=== PATIENT | male | born 1945 | race Caucasian/White ===

== ENCOUNTER 2019-02-20 12:03 | Emergency (ER) | payer OTHER, SELFPAY ==
[2019-02-20 12:14] VITALS: BP 139/73; PULSE 79; RESP 18; TEMP 36.5; O2SAT 99; BMI 28.3
--- NOTE | 2019-02-20 12:21 | DI.RAD.S_ITS ---
PROCEDURE: XR CHEST 1V INDICATIONS: chest pain TECHNIQUE: One view of the chest was acquired. COMPARISON: [facility], , CHEST 2 VIEW, 08/22/2014, 11:54. FINDINGS: Surgical changes and devices: None. Lungs and pleura: Lungs are clear. No pleural effusions or pneumothorax. Mediastinum: Mediastinal contours appear normal. Heart size is normal. Moderate hiatal hernia. Bones and chest wall: No suspicious bony lesions. Overlying soft tissues appear unremarkable. IMPRESSION: Moderate hiatal hernia. No evidence acute pulmonary process. Dictated by: Lionel Carrizaels M.D. on 02/20/2019 at 12:54 Approved by: Lionel Carrizales M.D. on 02/20/2019 at 12:55
[2019-02-20 12:30] VITALS: BP 125/65; PULSE 75; RESP 17; O2SAT 99
--- NOTE | 2019-02-20 12:36 | ED.DIZZY ---
HPI - Dizziness <ANJELICA Busch - Last Filed: 02/20/19 14:22> General Chief Complaint: Dizziness Stated Complaint: New Meds started, light headed Time Seen by Provider: 02/20/19 12:13 Source: patient and family (spouse) Mode of arrival: ambulatory Limitations: no limitations History of Present Illness HPI Narrative: started fluconazole on 02/17 within minutes of taking then new med he got dizzy, he was sitting in recliner and when he got up he was very dizzy, and immediately sat back down, dizziness is better when remaining still and worse with movement, there was also episode of some chest heaviness, but none now, the side effects say on bottle dizziness, so he thinks it is the new med, and now he is afraid to take it, rx that for yeast infection of the groin that was getting worse with otc topical meds MD complaint: dizziness Onset (ago): hour(s) (3) Timing: sudden onset Description: sense of movement, off-balance and difficulty walking History of similar episodes: No History of trauma: No Severity: severe Relieving factors: remaining still Exacerbating factors: movement Associated symptoms: chest pain (chest heaviness, no pain) Related Data Allergies Allergy/AdvReac Type Severity Reaction Status Date / Time Penicillins Allergy Verified 02/20/19 12:18 Review of Systems <ANJELICA Busch - Last Filed: 02/20/19 14:22> Review of Systems ROS Unobtainable: All systems reviewed & are unremarkable except as noted in HPI and below Constitutional Reports as per HPI and Denies fever(s) ENT Ears, Nose, Mouth, and Throat: Denies neck pain Cardiovascular Denies chest pain, Denies chest pain at rest, Denies chest pain with activity, Denies diaphoresis, Denies syncope, Denies rapid heart rate, Denies edema, Denies irregular heart rhythm, Denies lightheadedness, Denies palpitations and Denies dyspnea Respiratory Denies dyspnea Gastrointestinal Gastrointestinal: Denies diarrhea and Denies vomiting Musculoskeletal Denies back pain, Denies limited range of motion, Denies muscle weakness, Denies neck pain and Denies numbness Neurologic Denies syncope and Denies numbness Endocrine Denies palpitations PFSH <ANJELICA Busch - Last Filed: 02/20/19 14:22> Social History Smoking Status: Never smoker Social History Smoking Status: Never smoker Exam <ANJELICA Busch - Last Filed: 02/20/19 14:22> Initial Vital Signs Initial Vital Signs: Vital Signs Temperature 97.7 F 02/20/19 12:14 Pulse Rate 79 02/20/19 12:14 Respiratory Rate 18 02/20/19 12:14 Blood Pressure 139/73 02/20/19 12:14 Pulse Oximetry 99 02/20/19 12:14 Const General: cooperative, healthy appearing, comfortable, well developed and well groomed Nutritional Appearance: average body habitus Orientation: alert, awake and oriented x3 HENMT Head: normal to inspection and normocephalic Ears: hearing grossly normal bilaterally, external ears normal, TM's normal bilaterally, mastoids normal and other (B hearing aids) Nose: external nose normal and nares normal Face and sinus: normal facial exam, sinuses nontender and face symmetric Mouth: oral mucosae normal, lip normal, tongue normal, oropharynx normal and moist mucous membranes Teeth and gingiva: dentition normal and gingiva normal Throat: posterior oropharynx normal, tonsils normal and uvula midline Eyes General: appearance normal, both eyes and all related structures Visual Vo: normal visual vo by confrontation Eyelids: eyelids normal Conjunctivae: conjunctivae normal Sclera: sclerae normal Pupils: PERRL EOM: EOM intact bilaterally Neck Neck: normal visual inspection, full ROM, no meningeal signs, trachea midline, supple and No lymphadenopathy Chest Chest: normal inspection of the chest Resp Effort & Inspection: normal respiratory effort and able to speak in complete sentences Auscultation: clear to auscultation bilaterally Cardio Rate: regular rate Rhythm: regular rhythm Heart Sounds: S1 normal and S2 normal Back/Spine/Pelvis Cervical Spine: cervical ROM normal Thoracic/Lumbar Spine: thoraco-lumbar ROM normal Skin General: no rashes or lesions noted, elasticity normal, turgor normal and dry skin Neuro General: alert, awake, oriented x3 and meningeal signs present Cognition: normal cognition Speech: speech normal Gait: normal gait Motor: muscle tone normal throughout Sensory Exam: no sensory deficits noted Extrem General: normal to inspection and full ROM Psych Appearance: grossly normal and well kempt Mental Status: mental status grossly normal Speech and Movement: speech and movement normal Mood: congruent mood Affect: normal affect Attitude: cooperative Thought Process: normal Thought Content: normal Judgment: judgment good <Melonie Balderas DO - Last Filed: 02/20/19 19:17> Initial Vital Signs Initial Vital Signs: Vital Signs Temperature 97.7 F 02/20/19 12:14 Pulse Rate 79 02/20/19 12:14 Respiratory Rate 18 02/20/19 12:14 Blood Pressure 139/73 02/20/19 12:14 Pulse Oximetry 99 02/20/19 12:14 Course <ANJELICA Busch - Last Filed: 02/20/19 14:22> Course Narrative: 1410 results and dc plan discussed, pt not sure if meclizine helped or not, agreed to not take any more fluconazole, and call his dr tomorrow to see if they want to change med, voiced concerns that if i were to switch it to another anti-fungal, may have same dizzy type reaction Orders Ordered: ED Orders 02/20/19 12:21 XR chest 1V Stat EKG-12 Lead Stat 02/20/19 12:24 Complete Blood Count AUTO DIFF Stat Comprehensive Metabolic Panel Stat Lipase Stat Partial Thromboplastin Time Stat Prothrombin Time INR Stat Troponin & CK Cardiac Panel Stat 02/20/19 12:46 CT head/brain wo con Stat Discontinued Medications Meclizine HCl (Antivert) 25 mg PO NOW ONE Stop: 02/20/19 12:45 Vital Signs - 8 hr 02/20/19 12:14 02/20/19 12:30 02/20/19 13:07 Temperature 97.7 F Pulse Rate 79 75 74 Pulse Rate [Orthostatic Lying] Pulse Rate [Orthostatic Sitting] Pulse Rate [Orthostatic Standing] Respiratory Rate 18 17 16 Blood Pressure 139/73 Blood Pressure [Left Arm] 125/65 115/68 Blood Pressure [Orthostatic Lying] Blood Pressure [Orthostatic Sitting] Blood Pressure [Orthostatic Standing] Pulse Oximetry 99 99 98 02/20/19 13:39 02/20/19 13:52 02/20/19 14:00 Temperature Pulse Rate 79 71 Pulse Rate [Orthostatic Lying] 80 Pulse Rate [Orthostatic Sitting] 85 Pulse Rate [Orthostatic Standing] 82 Respiratory Rate 16 19 Blood Pressure 126/62 Blood Pressure [Left Arm] 131/68 135/68 Blood Pressure [Orthostatic Lying] 131/68 Blood Pressure [Orthostatic Sitting] 127/69 Blood Pressure [Orthostatic Standing] 125/59 L Pulse Oximetry 100 100 <Melonie Balderas DO - Last Filed: 02/20/19 19:17> Orders Ordered: ED Orders 02/20/19 12:21 XR chest 1V Stat EKG-12 Lead Stat 02/20/19 12:24 Complete Blood Count AUTO DIFF Stat Comprehensive Metabolic Panel Stat Lipase Stat Partial Thromboplastin Time Stat Prothrombin Time INR Stat Troponin & CK Cardiac Panel Stat 02/20/19 12:46 CT head/brain wo con Stat Discontinued Medications Meclizine HCl (Antivert) 25 mg PO NOW ONE Stop: 02/20/19 12:45 Vital Signs - 8 hr 02/20/19 12:14 02/20/19 12:30 02/20/19 13:07 Temperature 97.7 F Pulse Rate 79 75 74 Pulse Rate [Orthostatic Lying] Pulse Rate [Orthostatic Sitting] Pulse Rate [Orthostatic Standing] Respiratory Rate 18 17 16 Blood Pressure 139/73 Blood Pressure [Left Arm] 125/65 115/68 Blood Pressure [Orthostatic Lying] Blood Pressure [Orthostatic Sitting] Blood Pressure [Orthostatic Standing] Pulse Oximetry 99 99 98 02/20/19 13:39 02/20/19 13:52 02/20/19 14:00 Temperature Pulse Rate 79 71 Pulse Rate [Orthostatic Lying] 80 Pulse Rate [Orthostatic Sitting] 85 Pulse Rate [Orthostatic Standing] 82 Respiratory Rate 16 19 Blood Pressure 126/62 Blood Pressure [Left Arm] 131/68 135/68 Blood Pressure [Orthostatic Lying] 131/68 Blood Pressure [Orthostatic Sitting] 127/69 Blood Pressure [Orthostatic Standing] 125/59 L Pulse Oximetry 100 100 MDM - Dizziness <ANJELICA Busch - Last Filed: 02/20/19 14:22> Differential Diagnosis Likely adverse reaction to drug, benign paroxysmal positional vertigo, orthostatic hypotension, cerebrovascular accident, acute vestibular neuronitis, transient cerebral ischemia and other (mi) Lab Data Result diagrams: 02/20/19 12:24 02/20/19 12:24 Lab Results 02/20/19 02/20/19 02/20/19 Range/Units 12:24 12:24 12:24 WBC 8.4 (4.5-11.0) X10^3/uL RBC 4.03 L (4.5-5.9) X10^6/uL Hgb 12.7 L (13.5-17.5) g/dL Hct 37.2 L (41-53) % MCV 92.2 (80-100) fL MCH 31.4 (26-34) PG MCHC 34.1 (30-36) % RDW 14.4 (11.6-14.8) % Plt Count 275 (150-400) X10^3/uL Neut % (Auto) 65.0 (50-75) % Lymph % (Auto) 23.5 L (25-40) % [place] % (Auto) 9.4 (3-14) % Eos % (Auto) 1.5 L (2-4) % Baso % (Auto) 0.6 (0-2) % Neut # (Auto) 5500 (2043-4638) /uL Lymph # (Auto) 2000 (3442-5998) /uL [place] # (Auto) 800 (0-900) /uL Eos # (Auto) 100 (0-450) /uL Baso # (Auto) 100 (0-100) /uL PT 11.9 (10.1-12.7) SECONDS INR 1.0 (0.9-1.3) APTT 29 (26.4-36.2) SECONDS Sodium 140 (137-145) mmol/L Potassium 3.9 (3.4-5.1) mmol/L Chloride 105 (98-107) mmol/L Carbon Dioxide 24 (22-32) mmol/L BUN 25 H (9-20) mg/dL Creatinine 1.30 H (0.66-1.25) mg/dL Estimated GFR 54.3 L (>60) mL/min BUN/Creatinine Ratio 19.2 (6-22) Glucose 174 H (80-110) mg/dL Calcium 9.2 (8.4-10.2) mg/dL Total Bilirubin 0.7 (0.2-1.3) mg/dL AST 24 (17-59) IU/L ALT 16 L (21-72) IU/L Alkaline Phosphatase 71 (38-126) U/L Total Creatine Kinase 50 L (55-170) U/L CK-MB (CK-2) TNP CK-MB (CK-2) Rel Index TNP Troponin I < 0.012 (0.01-0.034) ng/mL Total Protein 7.1 (6.3-8.2) g/dL Albumin 4.4 (3.5-5.0) g/dL Globulin 2.7 (1.7-4.1) g/dL Albumin/Globulin Ratio 1.6 (1.0-2.8) Lipase 115 (23-300) U/L Imaging Data Chest x-ray: Radiologist's impression: [address] [address] XRay Report Signed Patient: Lui Sahni EMR#: [id number] : [id number]:[id number] Age/Sex: 73 / MDate of Service: 02/20/19 Loc: ED Accession Number: [id number] Procedure: XR chest 1V Ordering Provider: Melonie Balderas D.O. PROCEDURE: XR CHEST 1V INDICATIONS: chest pain TECHNIQUE: One view of the chest was acquired. COMPARISON: [facility] , CHEST 2 VIEW, 08/22/2014, 11:54. FINDINGS: Surgical changes and devices: None. Lungs and pleura: Lungs are clear. No pleural effusions or pneumothorax. Mediastinum: Mediastinal contours appear normal. Heart size is normal. Moderate hiatal hernia. Bones and chest wall: No suspicious bony lesions. Overlying soft tissues appear unremarkable. IMPRESSION: Moderate hiatal hernia. No evidence acute pulmonary process. Dictated by: Lionel Carrizales M.D. on 02/20/2019 at 12:54 Approved by: Lionel Carrizales M.D. on 02/20/2019 at 12:[address] [address] [address] Scan Report Signed Patient: Lui Sahni EMR#: [id number] : [id number]:[id number] Age/Sex: 73 / MDate of Service: 02/20/19 Loc: ED Accession Number: [id number] Procedure: CT head/brain wo con Ordering Provider: Hanna Degroot PROCEDURE: CT HEAD/BRAIN WO CON INDICATIONS: dizzy TECHNIQUE: Noncontrast 4.5 mm thick angled axial sections acquired from the foramen magnum to the vertex, with coronal and sagittal reformats. For radiation dose reduction, the following was used: automated exposure control, adjustment of mA and/or kV according to patient size. COMPARISON: None. FINDINGS: Image quality: Excellent. CSF spaces: Basal cisterns are patent. No extra-axial fluid collections. Ventricles are normal in size and shape. Brain: No midline shift. No intracranial masses or hemorrhage. No acute strokes. Gavin-white matter interface is normal. Skull and face: Calvarium and visualized facial bones are intact, without suspicious lesions. Sinuses: Visualized sinuses and mastoids are clear. IMPRESSION: Negative head CT with no evidence of acute stroke, hemorrhage, or mass. Dictated by: Lionel Carrizales M.D. on 02/20/2019 at 13:22 Approved by: Lionel Carrizales M.D. on 02/20/2019 at 13:23 ECG Data Attestation: I personally reviewed and interpreted this ECG as follows: (ekg reviewed by in and Dr Balderas, SR heart rate 75, incomplete R bbb, no st wave changes seen) <Melonie Balderas, - Last Filed: 02/20/19 19:17> Lab Data Lab Results 02/20/19 02/20/19 02/20/19 Range/Units 12:24 12:24 12:24 WBC 8.4 (4.5-11.0) X10^3/uL RBC 4.03 L (4.5-5.9) X10^6/uL Hgb 12.7 L (13.5-17.5) g/dL Hct 37.2 L (41-53) % MCV 92.2 (80-100) fL MCH 31.4 (26-34) PG MCHC 34.1 (30-36) % RDW 14.4 (11.6-14.8) % Plt Count 275 (150-400) X10^3/uL Neut % (Auto) 65.0 (50-75) % Lymph % (Auto) 23.5 L (25-40) % [place] % (Auto) 9.4 (3-14) % Eos % (Auto) 1.5 L (2-4) % Baso % (Auto) 0.6 (0-2) % Neut # (Auto) 5500 (4309-5358) /uL Lymph # (Auto) 2000 (1029-7681) /uL [place] # (Auto) 800 (0-900) /uL Eos # (Auto) 100 (0-450) /uL Baso # (Auto) 100 (0-100) /uL PT 11.9 (10.1-12.7) SECONDS INR 1.0 (0.9-1.3) APTT 29 (26.4-36.2) SECONDS Sodium 140 (137-145) mmol/L Potassium 3.9 (3.4-5.1) mmol/L Chloride 105 (98-107) mmol/L Carbon Dioxide 24 (22-32) mmol/L BUN 25 H (9-20) mg/dL Creatinine 1.30 H (0.66-1.25) mg/dL Estimated GFR 54.3 L (>60) mL/min BUN/Creatinine Ratio 19.2 (6-22) Glucose 174 H (80-110) mg/dL Calcium 9.2 (8.4-10.2) mg/dL Total Bilirubin 0.7 (0.2-1.3) mg/dL AST 24 (17-59) IU/L ALT 16 L (21-72) IU/L Alkaline Phosphatase 71 (38-126) U/L Total Creatine Kinase 50 L (55-170) U/L CK-MB (CK-2) TNP CK-MB (CK-2) Rel Index TNP Troponin I < 0.012 (0.01-0.034) ng/mL Total Protein 7.1 (6.3-8.2) g/dL Albumin 4.4 (3.5-5.0) g/dL Globulin 2.7 (1.7-4.1) g/dL Albumin/Globulin Ratio 1.6 (1.0-2.8) Lipase 115 (23-300) U/L Discharge Plan Departure Patient Disposition: Home Clinical Impression: Adverse reaction to drug, Benign paroxysmal positional vertigo Discharge Date/Time: 02/20/19 14:01 Interventions: ED Discharge Assessment Last Done: 02/20/19 14:00 Instructions: DI for Vertigo Referrals: Bruce Catalan MD [Primary Care Provider] - (call tomorrow for further instructions on what to do with fluconazole, and follow up in 2-3 days ) <Melonie Balderas DO - Last Filed: 02/20/19 19:17> Cosign ED Attending Cosignature Attestation: I was immediately available in the department for consultation. This documentation has been reviewed. Supervised by Melonie Balderas DO
[2019-02-20 12:38] LABS: Add Manual Diff / Slide Review NO; Basophils Absolute Auto 100 /uL (0-100); Basophils Percent Auto 0.6 % (0-2); Eosinophils Absolute Auto 100 /uL (0-450); Eosinophils Percent Auto 1.5 % (2-4); Hematocrit 37.2 % (41-53); Hemoglobin 12.7 g/dL (13.5-17.5); Lymphocytes Absolute Auto 2000 /uL (1100-4500); Lymphocytes Percent Auto 23.5 % (25-40); Mean Corpuscular HGB Conc 34.1 % (30-36); Mean Corpuscular Hemoglobin 31.4 PG (26-34); Mean Corpuscular Volume 92.2 fL (80-100); Monocytes Absolute Auto 800 /uL (0-900); Monocytes Percent Auto 9.4 % (3-14); Neutrophils Absolute Auto 5500 /uL (1500-7000); Platelet Count 275 X10^3/uL (150-400); Red Blood Cell Count 4.03 X10^6/uL (4.5-5.9); Red Cell Distribution Width 14.4 % (11.6-14.8); White Blood Cell Count 8.4 X10^3/uL (4.5-11.0)
[2019-02-20 12:41] LABS: Prothrombin Time 11.9 SECONDS (10.1-12.7)
[2019-02-20 12:44] LABS: PTT Partial Thromboplastin Tim 29 SECONDS (26.4-36.2)
[2019-02-20 12:45] LABS: Alanine Aminotransferase 16 IU/L (21-72); Albumin 4.4 g/dL (3.5-5.0); Albumin Globulin Ratio 1.6 (1.0-2.8); Alkaline Phosphatase 71 U/L (38-126); Aspartate Aminotransferase 24 IU/L (17-59); BUN Creatinine Ratio 19.2 (6-22); Bilirubin Total 0.7 mg/dL (0.2-1.3); Blood Urea Nitrogen 25 mg/dL (9-20); Calcium 9.2 mg/dL (8.4-10.2); Carbon Dioxide 24 mmol/L (22-32); Chloride 105 mmol/L (98-107); Creatine Kinase 50 U/L (55-170); Estimated Glomerular Filt Rate 54.3 mL/min (>60); Globulin 2.7 g/dL (1.7-4.1); Glucose 174 mg/dL (80-110); HEMOLYSIS 17 (0-50); Lipase 115 U/L (23-300); Potassium 3.9 mmol/L (3.4-5.1); Sodium 140 mmol/L (137-145); Total Protein 7.1 g/dL (6.3-8.2)
--- NOTE | 2019-02-20 12:46 | DI.CT.S_ITS ---
PROCEDURE: CT HEAD/BRAIN WO CON INDICATIONS: dizzy TECHNIQUE: Noncontrast 4.5 mm thick angled axial sections acquired from the foramen magnum to the vertex, with coronal and sagittal reformats. For radiation dose reduction, the following was used: automated exposure control, adjustment of mA and/or kV according to patient size. COMPARISON: None. FINDINGS: Image quality: Excellent. CSF spaces: Basal cisterns are patent. No extra-axial fluid collections. Ventricles are normal in size and shape. Brain: No midline shift. No intracranial masses or hemorrhage. No acute strokes. Gavin-white matter interface is normal. Skull and face: Calvarium and visualized facial bones are intact, without suspicious lesions. Sinuses: Visualized sinuses and mastoids are clear. IMPRESSION: Negative head CT with no evidence of acute stroke, hemorrhage, or mass. Dictated by: Lionel Carrizales M.D. on 02/20/2019 at 13:22 Approved by: Lionel Carrizales M.D. on 02/20/2019 at 13:23
--- NOTE | 2019-02-20 12:56 | ED_ITS ---
HPI - Dizziness <ANJELICA Busch - Last Filed: 02/20/19 14:22> General Chief Complaint: Dizziness Stated Complaint: New Meds started, light headed Time Seen by Provider: 02/20/19 12:13 Source: patient and family (spouse) Mode of arrival: ambulatory Limitations: no limitations History of Present Illness HPI Narrative: started fluconazole on 02/17 within minutes of taking then new med he got dizzy, he was sitting in recliner and when he got up he was very dizzy, and immediately sat back down, dizziness is better when remaining still and worse with movement, there was also episode of some chest heaviness, but none now, the side effects say on bottle dizziness, so he thinks it is the new med, and now he is afraid to take it, rx that for yeast infection of the groin that was getting worse with otc topical meds MD complaint: dizziness Onset (ago): hour(s) (3) Timing: sudden onset Description: sense of movement, off-balance and difficulty walking History of similar episodes: No History of trauma: No Severity: severe Relieving factors: remaining still Exacerbating factors: movement Associated symptoms: chest pain (chest heaviness, no pain) Related Data Allergies Allergy/AdvReac Type Severity Reaction Status Date / Time Penicillins Allergy Verified 02/20/19 12:18 Review of Systems <ANJELICA Busch - Last Filed: 02/20/19 14:22> Review of Systems ROS Unobtainable: All systems reviewed & are unremarkable except as noted in HPI and below Constitutional Reports as per HPI and Denies fever(s) ENT Ears, Nose, Mouth, and Throat: Denies neck pain Cardiovascular Denies chest pain, Denies chest pain at rest, Denies chest pain with activity, Denies diaphoresis, Denies syncope, Denies rapid heart rate, Denies edema, Denies irregular heart rhythm, Denies lightheadedness, Denies palpitations and Denies dyspnea Respiratory Denies dyspnea Gastrointestinal Gastrointestinal: Denies diarrhea and Denies vomiting Musculoskeletal Denies back pain, Denies limited range of motion, Denies muscle weakness, Denies neck pain and Denies numbness Neurologic Denies syncope and Denies numbness Endocrine Denies palpitations PFSH <ANJELICA Busch - Last Filed: 02/20/19 14:22> Social History Smoking Status: Never smoker Social History Smoking Status: Never smoker Exam <ANJELICA Busch - Last Filed: 02/20/19 14:22> Initial Vital Signs Initial Vital Signs: Vital Signs Temperature 97.7 F 02/20/19 12:14 Pulse Rate 79 02/20/19 12:14 Respiratory Rate 18 02/20/19 12:14 Blood Pressure 139/73 02/20/19 12:14 Pulse Oximetry 99 02/20/19 12:14 Const General: cooperative, healthy appearing, comfortable, well developed and well groomed Nutritional Appearance: average body habitus Orientation: alert, awake and oriented x3 HENMT Head: normal to inspection and normocephalic Ears: hearing grossly normal bilaterally, external ears normal, TM's normal bilaterally, mastoids normal and other (B hearing aids) Nose: external nose normal and nares normal Face and sinus: normal facial exam, sinuses nontender and face symmetric Mouth: oral mucosae normal, lip normal, tongue normal, oropharynx normal and moist mucous membranes Teeth and gingiva: dentition normal and gingiva normal Throat: posterior oropharynx normal, tonsils normal and uvula midline Eyes General: appearance normal, both eyes and all related structures Visual Vo: normal visual vo by confrontation Eyelids: eyelids normal Conjunctivae: conjunctivae normal Sclera: sclerae normal Pupils: PERRL EOM: EOM intact bilaterally Neck Neck: normal visual inspection, full ROM, no meningeal signs, trachea midline, supple and No lymphadenopathy Chest Chest: normal inspection of the chest Resp Effort & Inspection: normal respiratory effort and able to speak in complete sentences Auscultation: clear to auscultation bilaterally Cardio Rate: regular rate Rhythm: regular rhythm Heart Sounds: S1 normal and S2 normal Back/Spine/Pelvis Cervical Spine: cervical ROM normal Thoracic/Lumbar Spine: thoraco-lumbar ROM normal Skin General: no rashes or lesions noted, elasticity normal, turgor normal and dry skin Neuro General: alert, awake, oriented x3 and meningeal signs present Cognition: normal cognition Speech: speech normal Gait: normal gait Motor: muscle tone normal throughout Sensory Exam: no sensory deficits noted Extrem General: normal to inspection and full ROM Psych Appearance: grossly normal and well kempt Mental Status: mental status grossly normal Speech and Movement: speech and movement normal Mood: congruent mood Affect: normal affect Attitude: cooperative Thought Process: normal Thought Content: normal Judgment: judgment good <Melonie Balderas DO - Last Filed: 02/20/19 19:17> Initial Vital Signs Initial Vital Signs: Vital Signs Temperature 97.7 F 02/20/19 12:14 Pulse Rate 79 02/20/19 12:14 Respiratory Rate 18 02/20/19 12:14 Blood Pressure 139/73 02/20/19 12:14 Pulse Oximetry 99 02/20/19 12:14 Course <ANJELICA Busch - Last Filed: 02/20/19 14:22> Course Narrative: 1410 results and dc plan discussed, pt not sure if meclizine helped or not, agreed to not take any more fluconazole, and call his dr tomorrow to see if they want to change med, voiced concerns that if i were to switch it to another anti-fungal, may have same dizzy type reaction Orders Ordered: ED Orders 02/20/19 12:21 XR chest 1V Stat EKG-12 Lead Stat 02/20/19 12:24 Complete Blood Count AUTO DIFF Stat Comprehensive Metabolic Panel Stat Lipase Stat Partial Thromboplastin Time Stat Prothrombin Time INR Stat Troponin & CK Cardiac Panel Stat 02/20/19 12:46 CT head/brain wo con Stat Discontinued Medications Meclizine HCl (Antivert) 25 mg PO NOW ONE Stop: 02/20/19 12:45 Vital Signs - 8 hr 02/20/19 12:14 02/20/19 12:30 02/20/19 13:07 Temperature 97.7 F Pulse Rate 79 75 74 Pulse Rate [Orthostatic Lying] Pulse Rate [Orthostatic Sitting] Pulse Rate [Orthostatic Standing] Respiratory Rate 18 17 16 Blood Pressure 139/73 Blood Pressure [Left Arm] 125/65 115/68 Blood Pressure [Orthostatic Lying] Blood Pressure [Orthostatic Sitting] Blood Pressure [Orthostatic Standing] Pulse Oximetry 99 99 98 02/20/19 13:39 02/20/19 13:52 02/20/19 14:00 Temperature Pulse Rate 79 71 Pulse Rate [Orthostatic Lying] 80 Pulse Rate [Orthostatic Sitting] 85 Pulse Rate [Orthostatic Standing] 82 Respiratory Rate 16 19 Blood Pressure 126/62 Blood Pressure [Left Arm] 131/68 135/68 Blood Pressure [Orthostatic Lying] 131/68 Blood Pressure [Orthostatic Sitting] 127/69 Blood Pressure [Orthostatic Standing] 125/59 L Pulse Oximetry 100 100 <Melonie Balderas DO - Last Filed: 02/20/19 19:17> Orders Ordered: ED Orders 02/20/19 12:21 XR chest 1V Stat EKG-12 Lead Stat 02/20/19 12:24 Complete Blood Count AUTO DIFF Stat Comprehensive Metabolic Panel Stat Lipase Stat Partial Thromboplastin Time Stat Prothrombin Time INR Stat Troponin & CK Cardiac Panel Stat 02/20/19 12:46 CT head/brain wo con Stat Discontinued Medications Meclizine HCl (Antivert) 25 mg PO NOW ONE Stop: 02/20/19 12:45 Vital Signs - 8 hr 02/20/19 12:14 02/20/19 12:30 02/20/19 13:07 Temperature 97.7 F Pulse Rate 79 75 74 Pulse Rate [Orthostatic Lying] Pulse Rate [Orthostatic Sitting] Pulse Rate [Orthostatic Standing] Respiratory Rate 18 17 16 Blood Pressure 139/73 Blood Pressure [Left Arm] 125/65 115/68 Blood Pressure [Orthostatic Lying] Blood Pressure [Orthostatic Sitting] Blood Pressure [Orthostatic Standing] Pulse Oximetry 99 99 98 02/20/19 13:39 02/20/19 13:52 02/20/19 14:00 Temperature Pulse Rate 79 71 Pulse Rate [Orthostatic Lying] 80 Pulse Rate [Orthostatic Sitting] 85 Pulse Rate [Orthostatic Standing] 82 Respiratory Rate 16 19 Blood Pressure 126/62 Blood Pressure [Left Arm] 131/68 135/68 Blood Pressure [Orthostatic Lying] 131/68 Blood Pressure [Orthostatic Sitting] 127/69 Blood Pressure [Orthostatic Standing] 125/59 L Pulse Oximetry 100 100 MDM - Dizziness <ANJELICA Busch - Last Filed: 02/20/19 14:22> Differential Diagnosis Likely adverse reaction to drug, benign paroxysmal positional vertigo, orthostatic hypotension, cerebrovascular accident, acute vestibular neuronitis, transient cerebral ischemia and other (mi) Lab Data Result diagrams: 02/20/19 12:24 02/20/19 12:24 Lab Results 02/20/19 02/20/19 02/20/19 Range/Units 12:24 12:24 12:24 WBC 8.4 (4.5-11.0) X10^3/uL RBC 4.03 L (4.5-5.9) X10^6/uL Hgb 12.7 L (13.5-17.5) g/dL Hct 37.2 L (41-53) % MCV 92.2 (80-100) fL MCH 31.4 (26-34) PG MCHC 34.1 (30-36) % RDW 14.4 (11.6-14.8) % Plt Count 275 (150-400) X10^3/uL Neut % (Auto) 65.0 (50-75) % Lymph % (Auto) 23.5 L (25-40) % [place] % (Auto) 9.4 (3-14) % Eos % (Auto) 1.5 L (2-4) % Baso % (Auto) 0.6 (0-2) % Neut # (Auto) 5500 (8563-6971) /uL Lymph # (Auto) 2000 (5450-8139) /uL [place] # (Auto) 800 (0-900) /uL Eos # (Auto) 100 (0-450) /uL Baso # (Auto) 100 (0-100) /uL PT 11.9 (10.1-12.7) SECONDS INR 1.0 (0.9-1.3) APTT 29 (26.4-36.2) SECONDS Sodium 140 (137-145) mmol/L Potassium 3.9 (3.4-5.1) mmol/L Chloride 105 (98-107) mmol/L Carbon Dioxide 24 (22-32) mmol/L BUN 25 H (9-20) mg/dL Creatinine 1.30 H (0.66-1.25) mg/dL Estimated GFR 54.3 L (>60) mL/min BUN/Creatinine Ratio 19.2 (6-22) Glucose 174 H (80-110) mg/dL Calcium 9.2 (8.4-10.2) mg/dL Total Bilirubin 0.7 (0.2-1.3) mg/dL AST 24 (17-59) IU/L ALT 16 L (21-72) IU/L Alkaline Phosphatase 71 (38-126) U/L Total Creatine Kinase 50 L (55-170) U/L CK-MB (CK-2) TNP CK-MB (CK-2) Rel Index TNP Troponin I < 0.012 (0.01-0.034) ng/mL Total Protein 7.1 (6.3-8.2) g/dL Albumin 4.4 (3.5-5.0) g/dL Globulin 2.7 (1.7-4.1) g/dL Albumin/Globulin Ratio 1.6 (1.0-2.8) Lipase 115 (23-300) U/L Imaging Data Chest x-ray: Radiologist's impression: [address] [address] XRay Report Signed Patient: Lui Sahni EMR#: [id number] : [id number]:[id number] Age/Sex: 73 / MDate of Service: 02/20/19 Loc: ED Accession Number: [id number] Procedure: XR chest 1V Ordering Provider: Melonie Balderas D.O. PROCEDURE: XR CHEST 1V INDICATIONS: chest pain TECHNIQUE: One view of the chest was acquired. COMPARISON: [facility] , CHEST 2 VIEW, 08/22/2014, 11:54. FINDINGS: Surgical changes and devices: None. Lungs and pleura: Lungs are clear. No pleural effusions or pneumothorax. Mediastinum: Mediastinal contours appear normal. Heart size is normal. Moderate hiatal hernia. Bones and chest wall: No suspicious bony lesions. Overlying soft tissues appear unremarkable. IMPRESSION: Moderate hiatal hernia. No evidence acute pulmonary process. Dictated by: Lionel Carrizales M.D. on 02/20/2019 at 12:54 Approved by: Lionel Carrizales M.D. on 02/20/2019 at 12:[address] [address] [address] Scan Report Signed Patient: Lui Sahni EMR#: [id number] : [id number]:[id number] Age/Sex: 73 / MDate of Service: 02/20/19 Loc: ED Accession Number: [id number] Procedure: CT head/brain wo con Ordering Provider: Hanna Degroot PROCEDURE: CT HEAD/BRAIN WO CON INDICATIONS: dizzy TECHNIQUE: Noncontrast 4.5 mm thick angled axial sections acquired from the foramen magnum to the vertex, with coronal and sagittal reformats. For radiation dose reduction, the following was used: automated exposure control, adjustment of mA and/or kV according to patient size. COMPARISON: None. FINDINGS: Image quality: Excellent. CSF spaces: Basal cisterns are patent. No extra-axial fluid collections. Ventricles are normal in size and shape. Brain: No midline shift. No intracranial masses or hemorrhage. No acute strokes. Gavin-white matter interface is normal. Skull and face: Calvarium and visualized facial bones are intact, without suspicious lesions. Sinuses: Visualized sinuses and mastoids are clear. IMPRESSION: Negative head CT with no evidence of acute stroke, hemorrhage, or mass. Dictated by: Lionel Carrizales M.D. on 02/20/2019 at 13:22 Approved by: Lionel Carrizales M.D. on 02/20/2019 at 13:23 ECG Data Attestation: I personally reviewed and interpreted this ECG as follows: (ekg reviewed by ny and Dr Balderas, SR heart rate 75, incomplete R bbb, no st wave changes seen) <Melonie Balderas, - Last Filed: 02/20/19 19:17> Lab Data Lab Results 02/20/19 02/20/19 02/20/19 Range/Units 12:24 12:24 12:24 WBC 8.4 (4.5-11.0) X10^3/uL RBC 4.03 L (4.5-5.9) X10^6/uL Hgb 12.7 L (13.5-17.5) g/dL Hct 37.2 L (41-53) % MCV 92.2 (80-100) fL MCH 31.4 (26-34) PG MCHC 34.1 (30-36) % RDW 14.4 (11.6-14.8) % Plt Count 275 (150-400) X10^3/uL Neut % (Auto) 65.0 (50-75) % Lymph % (Auto) 23.5 L (25-40) % [place] % (Auto) 9.4 (3-14) % Eos % (Auto) 1.5 L (2-4) % Baso % (Auto) 0.6 (0-2) % Neut # (Auto) 5500 (9291-4559) /uL Lymph # (Auto) 2000 (7616-0051) /uL [place] # (Auto) 800 (0-900) /uL Eos # (Auto) 100 (0-450) /uL Baso # (Auto) 100 (0-100) /uL PT 11.9 (10.1-12.7) SECONDS INR 1.0 (0.9-1.3) APTT 29 (26.4-36.2) SECONDS Sodium 140 (137-145) mmol/L Potassium 3.9 (3.4-5.1) mmol/L Chloride 105 (98-107) mmol/L Carbon Dioxide 24 (22-32) mmol/L BUN 25 H (9-20) mg/dL Creatinine 1.30 H (0.66-1.25) mg/dL Estimated GFR 54.3 L (>60) mL/min BUN/Creatinine Ratio 19.2 (6-22) Glucose 174 H (80-110) mg/dL Calcium 9.2 (8.4-10.2) mg/dL Total Bilirubin 0.7 (0.2-1.3) mg/dL AST 24 (17-59) IU/L ALT 16 L (21-72) IU/L Alkaline Phosphatase 71 (38-126) U/L Total Creatine Kinase 50 L (55-170) U/L CK-MB (CK-2) TNP CK-MB (CK-2) Rel Index TNP Troponin I < 0.012 (0.01-0.034) ng/mL Total Protein 7.1 (6.3-8.2) g/dL Albumin 4.4 (3.5-5.0) g/dL Globulin 2.7 (1.7-4.1) g/dL Albumin/Globulin Ratio 1.6 (1.0-2.8) Lipase 115 (23-300) U/L Discharge Plan Departure Patient Disposition: Home Clinical Impression: Adverse reaction to drug, Benign paroxysmal positional vertigo Discharge Date/Time: 02/20/19 14:01 Interventions: ED Discharge Assessment Last Done: 02/20/19 14:00 Instructions: DI for Vertigo Referrals: Bruce Catalan MD [Primary Care Provider] - (call tomorrow for further instructions on what to do with fluconazole, and follow up in 2-3 days ) <Melonie Balderas DO - Last Filed: 02/20/19 19:17> Cosign ED Attending Cosignature Attestation: I was immediately available in the department for consultation. This docum entation has been reviewed. Supervised by Melonie Balderas DO
[2019-02-20 12:57] LABS: Troponin I < 0.012 ng/mL (0.01-0.034)
[2019-02-20 13:07] VITALS: BP 115/68; PULSE 74; RESP 16; O2SAT 98
[2019-02-20 13:39] VITALS: BP 131/68; PULSE 79; RESP 16; O2SAT 100
--- NOTE | 2019-02-20 13:41 | PC.NURSE ---
1250 - return from lunch to find patient on monitor, with IV established, blood was sent to lab, VSS and WNL
[2019-02-20 13:52] VITALS: BP 125/59; BP 127/69; BP 131/68; PULSE 80; PULSE 82; PULSE 85
[2019-02-20 14:00] VITALS: BP 126/62; BP 135/68; PULSE 71; PULSE 73; RESP 19; O2SAT 100
== END 2019-02-20 14:01 | disposition home or self-care (01) ==
PROVIDERS: Emergency Medicine; Emergency Provider Nurse Practitioner; PCP Family Medicine
DX: H81.10 Benign paroxysmal vertigo, unspecified ear (principal); R07.89 Other chest pain; T50.905A Adverse effect of unspecified drugs, medicaments and biological substances, initial encounter
CPT/HCPCS: 36591; 70450; 71045; 80053; 82550; 83690; 84484; 85025; 85610; 85730; 93005; 99283; 99285

== ENCOUNTER 2020-04-08 19:57 | Observation (INO) | payer OTHER, SELFPAY ==
[2020-04-08] VITALS (14 sets, daily range): BP systolic 86–202; BP diastolic 47–95; PULSE 62–97; RESP 13–25; TEMP 36.7; O2SAT 95–99
--- NOTE | 2020-04-08 20:03 | ED.CHESTPAIN ---
HPI - Chest Pain General Chief Complaint: Chest Pain Stated Complaint: Chest pain Time Seen by Provider: 04/08/20 19:58 Source: patient Mode of arrival: EMS Limitations: no limitations History of Present Illness HPI narrative: 74-year-old male nonsmoker with history of hypertension presents with a chief complaint of 3/10 retrosternal and epigastric discomfort after eating at noon. He had a spicy sandwich from a fast food restaurant. He denies any radiation or further provocation of his symptoms. He denies any nausea, vomiting or diaphoresis. He denies any shortness of breath and is not dizzy or lightheaded. On arrival medics found his blood pressure to be in the 200s, he was given nitro and aspirin and his blood pressure dropped to the 150s and symptoms resolved. He states that he has had no provocative testing from a cardiac standpoint in many years. He states that over the past few days he has been more fatigued than normal and short of breath with exertion. MD complaint: chest pain Onset (ago): hour(s) Duration: intermittent Onset: during rest Pain location: substernal Severity: moderate Quality: tightness and aching Pain radiation: none Relieving factors: nitroglycerin Exacerbating factors: nothing Treatments prior to arrival chest pain: aspirin and nitroglycerin Related Data Home Medications Medication Instructions Recorded Confirmed allopurinol 300 mg PO QAM 04/08/20 04/08/20 amlodipine 10 mg PO QPM 04/08/20 04/08/20 aspirin [Adult Low Dose Aspirin] 81 mg PO QPM 04/08/20 04/08/20 atorvastatin 10 mg PO QPM 04/08/20 04/08/20 beclomethasone dipropionate [Qvar 40 mcg INHALATION BID 04/08/20 04/08/20 RediHaler] fexofenadine 180 mg PO QAM 04/08/20 04/08/20 fexofenadine-pseudoephedrine 1 tab PO QAM 04/08/20 04/08/20 [Jessica-D 24 Hour] fluconazole 100 mg PO BID 04/08/20 04/08/20 gemfibrozil 600 mg PO BID 04/08/20 04/08/20 lisinopril 40 mg PO QPM 04/08/20 04/08/20 omeprazole 20 mg PO BID 04/08/20 04/08/20 tamsulosin 40 mg PO QPM 04/08/20 04/08/20 Allergies Allergy/AdvReac Type Severity Reaction Status Date / Time Penicillins Allergy Verified 04/08/20 20:03 Review of Systems Constitutional Constitutional: Denies chills, Denies fatigue, Denies fever(s), Denies frequent falls, Denies lethargy and Denies weakness Eyes Eyes: Denies change in vision, Denies eye discharge, Denies irritation and Denies loss of vision ENT Ears, Nose, Mouth, and Throat: Denies change in voice, Denies dizziness, Denies neck pain, Denies sore throat and Denies throat swelling Cardiovascular Cardiovascular: Reports chest pain, Denies irregular heart rhythm, Denies lightheadedness, Denies palpitations, Denies dyspnea, Denies dyspnea on exertion and Denies orthopnea Respiratory Respiratory: Denies cough, Denies dyspnea, Denies dyspnea on exertion and Denies wheezing Gastrointestinal Gastrointestinal: Denies abdominal pain, Denies change in bowel habits, Denies diarrhea, Denies nausea and Denies vomiting Musculoskeletal Musculoskeletal: Denies neck pain and Denies numbness Integumentary/Breasts Skin/Breast: Denies pruritus, Denies erythema, Denies rash and Denies wounds Neurologic Neurologic: Denies behavioral changes, Denies confusion, Denies dizziness, Denies frequent falls, Denies loss of vision, Denies numbness and Denies weakness Psychiatric Psychiatric: Denies anxiety, Denies behavioral changes, Denies confusion, Denies depression, Denies homicidal ideation and Denies suicidal ideation Endocrine Endocrine: Denies fatigue, Denies flushing and Denies palpitations Hematologic/Lymphatic Hematologic/Lymphatic: Denies easy bruising Allergic/Immunologic Allergic/Immunologic: Denies urticaria, Denies throat swelling and Denies wheezing Patient History Social History household members: spouse Smoking Status: Never smoker alcohol intake: former Smoking Status: Never smoker alcohol intake frequency: 0-2 drinks per day Substance Use Type: does not use Exam Narrative Exam Narrative: GENERAL: [74] year old patient appears stated age. Well-nourished, well-developed patient, in mild distress. HEAD: Atraumatic. Normocephalic. EYES: Pupils equal round and reactive. Extraocular motions intact. No scleral icterus. No injection or drainage. ENT: Nose without bleeding, purulent drainage. Throat without erythema, tonsillar hypertrophy or exudate. Airway patent. NECK: Trachea midline. Non tender CARDIOVASCULAR: Regular rate and rhythm without murmurs, gallops, or rubs. RESPIRATORY: Clear to auscultation. Breath sounds equal bilaterally. No wheezes, rales, or rhonchi. GASTROINTESTINAL: Abdomen soft, non-tender, nondistended. EXTREMITIES: No edema or joint tenderness. BACK: Nontender without deformity or crepitance. No flank tenderness. NEURO: AOx3. SKIN: No rash or erythema of visible areas Initial Vital Signs Initial Vital Signs: Vital Signs Temperature 98.0 F 04/08/20 19:57 Pulse Rate 97 H 04/08/20 19:57 Respiratory Rate 15 04/08/20 19:57 Blood Pressure 202/95 H 04/08/20 19:57 Pulse Oximetry 97 04/08/20 19:57 Scores HEART Score Heart Score history: Moderately Suspicious Heart Score EKG: Non-Specific repolarization disturbance Heart Score Age: > or = 65 years old Heart Score risk factors: 1-2 risk factors Heart Score troponin: < or = to normal limit Heart Score Total: 5 Course Course Course Narrative: Patient given nitro and blood pressure dropped from 190 to 80s. There was no change in his chest discomfort with the elevation in blood pressure or the administration of nitro here. Orders Ordered: ED Orders 04/08/20 22:58 Troponin I Stat Sodium Chloride (Normal Saline 0.9%) 1,000 mls @ 150 mls/hr IV CONT JEFFREY Last Admin: 04/09/20 01:16 Dose: 150 mls/hr Documented by: Infusion: 04/08/20 23:08 Dose: 0 mls/hr Documented by: Infusion: 04/08/20 20:54 Dose: 150 mls/hr Documented by: Infusion: 04/08/20 20:20 Dose: 999 mls/hr Documented by: Admin: 04/08/20 20:12 Dose: 150 mls/hr Documented by: PRIETO Discontinued Medications Aspirin (Aspirin Chew) 324 mg PO NOW ONE Stop: 04/08/20 20:03 Last Admin: 04/08/20 20:09 Dose: Not Given Documented by: PRIETO Nitroglycerin (Nitrostat) 0.4 mg SL [id number] PRN PRN Reason: chest pain Last Admin: 04/08/20 20:10 Dose: 0.4 mg Documented by: PRIETO Reevaluation(s) Reevaluation #1: Patient developing some increased chest pressure. Repeat EKG ordered Consultations Consultation #1: call to cardiology to discuss case. They do NOT recommend transfer given lack of ongoing pain, EKG changes, and normal troponin Vital Signs Vital signs: Vital Signs - 8 hr 04/08/20 22:30 04/08/20 23:30 Pulse Rate 80 80 Respiratory Rate 16 16 Blood Pressure [Left Arm] 166/83 H 168/81 H Pulse Oximetry 95 99 MDM - Chest Pain Lab Data Result diagrams: 04/08/20 20:22 04/08/20 20:22 Labs: Lab Results 04/08/20 04/08/20 04/08/20 Range/Units 20:22 20:22 20:22 WBC 8.8 (4.5-11.0) X10^3/uL RBC 4.03 L (4.5-5.9) X10^6/uL Hgb 12.8 L (13.5-17.5) g/dL Hct 36.9 L (41-53) % MCV 91.7 (80-100) fL MCH 31.7 (26-34) PG MCHC 34.5 (30-36) % RDW 14.4 (11.6-14.8) % Plt Count 255 (150-400) X10^3/uL Neut % (Auto) 63.1 (50-75) % Lymph % (Auto) 25.6 (25-40) % [place] % (Auto) 8.6 (3-14) % Eos % (Auto) 1.9 L (2-4) % Baso % (Auto) 0.8 (0-2) % Neut # (Auto) 5500 (4545-6038) /uL Lymph # (Auto) 2300 (3388-0048) /uL [place] # (Auto) 800 (0-900) /uL Eos # (Auto) 200 (0-450) /uL Baso # (Auto) 100 (0-100) /uL D-Dimer 432 H (<230) ng/mL Sodium 141 (137-145) mmol/L Potassium 3.7 (3.4-5.1) mmol/L Chloride 110 H (98-107) mmol/L Carbon Dioxide 22 (22-32) mmol/L BUN 17 (9-20) mg/dL Creatinine 1.11 (0.66-1.25) mg/dL Estimated GFR > 60.0 (>60) mL/min BUN/Creatinine Ratio 15.3 (6-22) Glucose 120 H (80-110) mg/dL Calcium 9.4 (8.4-10.2) mg/dL Total Bilirubin 0.6 (0.2-1.3) mg/dL AST 26 (17-59) IU/L ALT 17 (<50) IU/L Alkaline Phosphatase 100 (38-126) U/L Total Creatine Kinase 71 (55-170) U/L CK-MB (CK-2) TNP CK-MB (CK-2) Rel Index TNP Troponin I < 0.012 (0.01-0.034) ng/mL NT-Pro-B Natriuret Pep 87 (<125) pg/mL Total Protein 7.3 (6.3-8.2) g/dL Albumin 4.2 (3.5-5.0) g/dL Globulin 3.1 (1.7-4.1) g/dL Albumin/Globulin Ratio 1.4 (1.0-2.8) Lipase 145 (23-300) U/L Procalcitonin (<0.5) ng/mL 04/08/20 04/08/20 Range/Units 20:22 22:58 WBC (4.5-11.0) X10^3/uL RBC (4.5-5.9) X10^6/uL Hgb (13.5-17.5) g/dL Hct (41-53) % MCV (80-100) fL MCH (26-34) PG MCHC (30-36) % RDW (11.6-14.8) % Plt Count (150-400) X10^3/uL Neut % (Auto) (50-75) % Lymph % (Auto) (25-40) % [place] % (Auto) (3-14) % Eos % (Auto) (2-4) % Baso % (Auto) (0-2) % Neut # (Auto) (7659-3595) /uL Lymph # (Auto) (7190-4348) /uL [place] # (Auto) (0-900) /uL Eos # (Auto) (0-450) /uL Baso # (Auto) (0-100) /uL D-Dimer (<230) ng/mL Sodium (137-145) mmol/L Potassium (3.4-5.1) mmol/L Chloride (98-107) mmol/L Carbon Dioxide (22-32) mmol/L BUN (9-20) mg/dL Creatinine (0.66-1.25) mg/dL Estimated GFR (>60) mL/min BUN/Creatinine Ratio (6-22) Glucose (80-110) mg/dL Calcium (8.4-10.2) mg/dL Total Bilirubin (0.2-1.3) mg/dL AST (17-59) IU/L ALT (<50) IU/L Alkaline Phosphatase (38-126) U/L Total Creatine Kinase (55-170) U/L CK-MB (CK-2) CK-MB (CK-2) Rel Index Troponin I 0.013 (0.01-0.034) ng/mL NT-Pro-B Natriuret Pep (<125) pg/mL Total Protein (6.3-8.2) g/dL Albumin (3.5-5.0) g/dL Globulin (1.7-4.1) g/dL Albumin/Globulin Ratio (1.0-2.8) Lipase (23-300) U/L Procalcitonin 0.05 (<0.5) ng/mL Imaging Data Chest x-ray: Radiologist's Impression: [address] [address] XRay Report Signed Patient: Lui Sahni EMR#: [id number] : [id number]:[id number] Age/Sex: 74 / MDate of Service: 04/08/20 Loc: ED Accession Number: [id number] Procedure: XR chest 1V Ordering Provider: Kale Chavarria D.O. PROCEDURE: XR CHEST 1V INDICATIONS: chest pain TECHNIQUE: One view of the chest was acquired. [facility], , CHEST 2 VIEW, 08/22/2014, 11:54. FINDINGS: Surgical changes and devices: None. Lungs and pleura: Lungs are clear. No pleural effusions or pneumothorax. Mediastinum: Mediastinal contours appear unchanged. Question of hiatal hernia. Heart size is normal. Bones and chest wall: No suspicious bony lesions. Overlying soft tissues appear unremarkable. IMPRESSION: No acute cardiopulmonary abnormality. Dictated by: Jorge Pena M.D. on 04/08/2020 at 21:12 Approved by: Jorge Pena M.D. on 04/08/2020 at 21:13 Discharge Plan Departure Patient Disposition: Admitted as Observation Clinical Impression: Chest pain Qualifiers: Ischemic chest pain type: stable angina pectoris Discharge Date/Time: 04/09/20 00:53 Referrals: Bruce Catalan MD [Primary Care Provider] - Admit Date/Time: 04/08/20 23:43 Admit Provider: Bruce Catalan
[2020-04-08] MEDS: NITROGLYCERIN 0.4 MG SL TAB SL (20:10)
[2020-04-08] MEDS: SODIUM CHLORIDE 0.9% 1,000 ML 150 ML IV (20:12)
[2020-04-08 20:28] LABS: Add Manual Diff / Slide Review NO; Basophils Absolute Auto 100 /uL (0-100); Basophils Percent Auto 0.8 % (0-2); Eosinophils Absolute Auto 200 /uL (0-450); Eosinophils Percent Auto 1.9 % (2-4); Hematocrit 36.9 % (41-53); Hemoglobin 12.8 g/dL (13.5-17.5); Lymphocytes Absolute Auto 2300 /uL (1100-4500); Lymphocytes Percent Auto 25.6 % (25-40); Mean Corpuscular HGB Conc 34.5 % (30-36); Mean Corpuscular Hemoglobin 31.7 PG (26-34); Mean Corpuscular Volume 91.7 fL (80-100); Monocytes Absolute Auto 800 /uL (0-900); Monocytes Percent Auto 8.6 % (3-14); Neutrophils Absolute Auto 5500 /uL (1500-7000); Neutrophils Percent Auto 63.1 % (50-75); Platelet Count 255 X10^3/uL (150-400); Red Blood Cell Count 4.03 X10^6/uL (4.5-5.9); Red Cell Distribution Width 14.4 % (11.6-14.8); White Blood Cell Count 8.8 X10^3/uL (4.5-11.0)
[2020-04-08 20:40] LABS: D Dimer 432 ng/mL (<230)
[2020-04-08 20:42] LABS: Alanine Aminotransferase 17 IU/L (<50); Albumin 4.2 g/dL (3.5-5.0); Albumin Globulin Ratio 1.4 (1.0-2.8); Alkaline Phosphatase 100 U/L (38-126); Aspartate Aminotransferase 26 IU/L (17-59); BUN Creatinine Ratio 15.3 (6-22); Bilirubin Total 0.6 mg/dL (0.2-1.3); Blood Urea Nitrogen 17 mg/dL (9-20); Calcium 9.4 mg/dL (8.4-10.2); Carbon Dioxide 22 mmol/L (22-32); Chloride 110 mmol/L (98-107); Creatine Kinase 71 U/L (55-170); Estimated Glomerular Filt Rate > 60.0 mL/min (>60); Globulin 3.1 g/dL (1.7-4.1); Glucose 120 mg/dL (80-110); HEMOLYSIS < 15 (0-50); Lipase 145 U/L (23-300); Potassium 3.7 mmol/L (3.4-5.1); Sodium 141 mmol/L (137-145); Total Protein 7.3 g/dL (6.3-8.2)
[2020-04-08 20:54] LABS: Troponin I < 0.012 ng/mL (0.01-0.034)
--- NOTE | 2020-04-08 20:57 | PC.NURSE ---
Of note: Pt bp dropped significantly w/ ntg x 1. Pain also improved. IV fluids 500 cc NS bolus over 30 min w/ bp return to pre hospital levels. Provider aware.
[2020-04-08 20:58] LABS: Procalcitonin 0.05 ng/mL (<0.5)
[2020-04-08 21:01] LABS: NT-proBNP (BNP-Adult 18+) 87 pg/mL (<125)
[2020-04-08 23:30] LABS: Troponin I 0.013 ng/mL (0.01-0.034)
[2020-04-09] VITALS (7 sets, daily range): BP systolic 153–177; BP diastolic 64–87; PULSE 81–92; RESP 18–20; TEMP 36.4–36.6; O2SAT 96–98; BMI 27.8
[2020-04-09] MEDS: SODIUM CHLORIDE 0.9% 1,000 ML 150 ML IV ×2 (01:16→09:49)
--- NOTE | 2020-04-09 02:01 | PC.ADMIT ---
Patient admitted to room 205 from ER per stretcher and walked from stretcher into room. Is alert and oriented. [place] with bilateral hearing aids. Breath sounds CTA with RA sat of 96%. HRR; telemetry applied and reading was SR. Denies chest pain but states he was feeling dizzy/lightheaded earlier but denies now. Denies nausea. BT present and abdomen is soft. Voided; denies dysuria, frequency or urgency but has some nocturia. Is independent with mobility and appears steady on feet. Instructed if dizziness/lightheadedness occurs when getting out of bed he needs to call for assist; verbalizes understanding. Denies any current pain. Fall risk score is low. Oriented to call light and bed controls. [email or web address] [facility] Admission Note: The patient,Lui Sahni,74 y/o, was given written information regarding hospital policies, unit procedures and contact persons. Patient's smoking status: Never smoker. Vital Signs - 8 hr 04/08/20 19:57 04/08/20 20:00 04/08/20 20:10 Temperature 98.0 F Pulse Rate 97 H 85 75 Respiratory Rate 15 17 17 Blood Pressure 202/95 H 178/88 H Blood Pressure [Left Arm] 178/83 H 94/51 L Pulse Oximetry 97 96 98 04/08/20 20:15 04/08/20 20:29 04/08/20 20:34 Temperature Pulse Rate 62 72 70 Respiratory Rate 18 18 19 Blood Pressure Blood Pressure [Left Arm] 86/47 L 125/62 125/62 Pulse Oximetry 98 99 98 04/08/20 20:45 04/08/20 21:00 04/08/20 21:15 Temperature Pulse Rate 72 77 80 Respiratory Rate 18 19 25 H Blood Pressure Blood Pressure [Left Arm] 145/73 H 173/79 H 166/70 H Pulse Oximetry 98 99 97 04/08/20 21:30 04/08/20 21:45 04/08/20 22:00 Temperature Pulse Rate 73 78 76 Respiratory Rate 13 25 H 13 Blood Pressure Blood Pressure [Left Arm] 163/84 H 164/75 H 164/82 H Pulse Oximetry 98 97 98 04/08/20 22:30 04/08/20 23:30 04/09/20 01:01 Temperature 97.7 F Pulse Rate 80 80 86 Respiratory Rate 16 16 20 Blood Pressure 161/79 H Blood Pressure [Left Arm] 166/83 H 168/81 H Pulse Oximetry 95 99
[2020-04-09 07:21] LABS: Troponin I 0.016 ng/mL (0.01-0.034)
[2020-04-09] MEDS: PANTOPRAZOLE 20 MG TABLET PO (09:45)
[2020-04-09] MEDS: allopurinoL 300 MG TABLET PO (09:45)
[2020-04-09] MEDS: LORATADINE 10 MG TABLET PO (09:45)
[2020-04-09] MEDS: gemfibroziL 600 MG TABLET PO (09:46)
[2020-04-09] MEDS: BECLOMETHASONE 40 MCG INH 10.6 GM 1 PUFF INH (09:48)
--- NOTE | 2020-04-09 11:16 | PM.TREADMILL ---
Cardiac Stress Test Report Referral & Results Date Patient Seen: 04/09/20 Time Patient Seen: 11:17 Requesting provider: Bruce Catalan Indication: chest pain Rest ECG: sr with pvc Procedure Note: Standard nini protocol 5:10 min 6.1 METS. Slightly reduced exercise capacity KRISTY 13%. Baseline hypertension. No chest pain, significant dyspnea at max effort. Resting EKG sinus rhythm with occasional PVCs, PVCs increased with exercise. Pt has 14 beats of NSVT in recovery, asymptomatic. Impression: Equivocal stress test. Please note: Actual ECG tracings can be found in the PACS system.
--- NOTE | 2020-04-09 12:02 | PM.TREADMILL ---
Cardiac Stress Test Report Referral & Results Date Patient Seen: 04/09/20 Please note: Actual ECG tracings can be found in the PACS system.
--- NOTE | 2020-04-09 12:03 | CM.DANOTE ---
DCP/Assessment: Patient is a 74yr old male admitted to [facility] with chest pain. PCP is Dr. Catalan. Primary payor is 1)[facility]. Met with patient explained CM/SW role. Patient reports that he is I in all ADL's. Patient hopes to d/c home today. 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 Patient becomes emotional when discussing his spouse. Patient encouraged to follow up with services at and [facility]. Both has spouse support groups. Patient aware and agreeable. Spoke with provider and if stress test negative today patient will be discharged home. Patient with no identified d/c planning needs at this time. P: Home when stable. DENA Suarez Discharge Planning/Care Management Advanced directive, confirm from FAMILY Start: 04/09/20 01:12 Freq: Q24H Status: Active Protocol: Document 04/09/20 01:12 [facility] (Rec: 04/09/20 01:58 [facility] [id number]) Advance Directive, confirm on record Time 01:16 Person contacted patient instructed to have family bring today Copy received No Document 04/09/20 09:58 CLP (Rec: 04/09/20 11:02 CLP [id number]) Advance Directive, confirm on record Time 01:16 Person contacted patient instructed to have family bring today Copy received No Time 09:00 Person contacted patient Copy received No CM Discharge Assessment Start: 04/09/20 11:51 Freq: Status: Active Protocol: Document 04/09/20 11:51 KJS (Rec: 04/09/20 12:02 KJS [id number]) Discharge Planning Assessment Assigned Supervisor Microwave DENA Suarez Contact Information Barbara Sahni () [phone] Advance Directives? Yes History Provided By Patient,Medical Record Prior Living Arrangements House Household Members spouse Type of transporation used prior to Drives own vehicle admit Independent with ADL's Yes Is patient alert and oriented? Yes Caregiver for Another Yes: Cares for spouse at home Barriers to Discharge No Discharge Plan Home Transportation Arrangement Friend can provide transportation. Referrals Initiated None needed Whiteboard Updated in Patient Room with Yes name and ext. # of Supervisor Microwave Review Status In Process Next Review Type Continued Stay Review
--- NOTE | 2020-04-09 13:21 | PC.NURSE ---
Per Dr. Baumann patient will have outpatient stress test scheduled, and ok to discharge home. Unit ELECTRICAL SERVICE TECHNICIAN assisting to coordinate this with clinic to schedule outpatient. Patient will need insurance authorization and COVID test prior.
--- NOTE | 2020-04-09 17:30 | P.HP_ITS ---
History of Present Illness History of Present Illness Date Patient Seen: 04/09/20 Time Patient Seen: 08:00 Date of Onset of Symptoms: 04/08/20 Chief complaint: Chest pain Narrative: Patient is a 74-year-old male well known to me who presents with and for evaluation of chest discomfort. Patient was apparently in his usual state of health until 3-4 days prior to admission when he just was feeling fatigued. He had no fevers or chills. No cough. No dyspnea with exertion. No abdominal pain change in urine change in bowel movements. Really noticed no other difference. Was sleeping okay. Had really tried to do much because he was tir ed. He otherwise state like this for a while until the day of admission when he began having some discomfort. Had eaten around noon with a spicy sandwich and just felt like he had some discomfort which was more epigastric than substernal. No radiation. Low-grade maybe 3/10. Did not radiate. Did not seem to get worse with any specific issues. He had no shortness of breath. He did not have any diaphoresis nausea or vomiting. He was noticing that he was just not feeling right so he checked his blood pressure and his blood pressure was systolic in the 200s and diastolics in the low 100s. He has never had this kind of an issue before. But blood pressure has not been definitively well c ontrolled. He had been treated with hydrochlorothiazide in the past and had 2 low blood pressure and had that discontinued some time ago. Has not been checking his blood pressure on a regular basis. He has not had any dyspnea with exertion or other changes. Patient had decided that he was not feeling well and called 911. They found him with an elevated blood pressure given nitro which improved at significantly. He had no further discomfort during his ER or hospitalization. Patient has a history of hypertension, hyperlipidemia, does not smoke. Never has. No other changes. Past medical history is significant for significant allergies, hypertension, gout, asthma, hyperlipidemia, mixed, onychomycosis, BPH, reflux esophageal, Past surgical history noncontributory. Habits nonsmoker, occasional drinker, Social history. longstanding, retired. Patient History Family & Social History Social History: household members spouse Prior Living Arrangements House Safety & Behavioral: Feels Safe in Current Yes Environment Been Physically Hurt or No Threatened By a Person Suicidal Ideation Description None Suicide Plan Description No Plan Tobacco & Substance use: Smoking Status Never smoker alcohol intake former alcohol intake frequency 0-2 drinks per day Substance Use Type does not use Meds Home Medications and Allergies Home Medications Medication Instructions Recorded Confirmed Type Jessica-D 24 Hour 1 tab PO QAM 04/08/20 04/08/20 History Qvar RediHaler 40 mcg INHALATION BID 04/08/20 04/08/20 History allopurinol 300 mg PO QAM 04/08/20 04/08/20 History amlodipine 10 mg PO QPM 04/08/20 04/08/20 History aspirin [Adult Low Dose Aspirin] 81 mg PO QPM 04/08/20 04/08/20 History atorvastatin 10 mg PO QPM 04/08/20 04/08/20 History fexofenadine 180 mg PO QAM 04/08/20 04/08/20 History fluconazole 100 mg PO BID 04/08/20 04/08/20 History gemfibrozil 600 mg PO BID 04/08/20 04/08/20 History lisinopril 40 mg PO QPM 04/08/20 04/08/20 History omeprazole 20 mg PO BID 04/08/20 04/08/20 History tamsulosin 40 mg PO QPM 04/08/20 04/08/20 History hydrochlorothiazide 12.5 mg PO DAILY #30 tab 04/09/20 Rx Allergies Allergy/AdvReac Type Severity Reaction Status Date / Time Penicillins Allergy Verified 04/08/20 20:03 Exam Vital Signs (past 8 hours): - 04/09/20 11:49 Temperature 97.9 F Pulse Rate 92 H Respiratory Rate 18 Blood Pressure 153/80 H Pulse Oximetry 96 Oxygen Delivery Method Room Air Oxygen Flow Rate 0 Narrative Exam Narrative: Alert smiling male in no acute distress. HEENT exam is unremarkable. With eyes normal, pupils equal is positive like, no oral lesions, neck supple without adenopathy JVD or bruits. No supraclavicular adenopathy. Lungs are clear. Heart regular rate and rhythm without murmurs clicks rubs or gallops. Abdomen is soft positive bowel sounds nontender. No pedis P no megaly. Extremities without cyanosis clubbing edema. Neurologic exam is cranial nerves 2-12 are intact motor is 5/5 reflexes 2+ and symmetric. Did not walk patient. Psychologically smiling interactive appropriate with good eye contact. Objective Labs Result Diagrams: 04/08/20 20:22 04/08/20 20:22 Labs: Laboratory Results - last 24 hr 04/08/20 04/08/20 04/08/20 20:22 20:22 20:22 WBC 8.8 RBC 4.03 L Hgb 12.8 L Hct 36.9 L MCV 91.7 MCH 31.7 MCHC 34.5 RDW 14.4 Plt Count 255 Neut % (Auto) 63.1 Lymph % (Auto) 25.6 [place] % (Auto) 8.6 Eos % (Auto) 1.9 L Baso % (Auto) 0.8 Neut # (Auto) 5500 Lymph # (Auto) 2300 [place] # (Auto) 800 Eos # (Auto) 200 Baso # (Auto) 100 D-Dimer 432 H Sodium 141 Potassium 3.7 Chloride 110 H Carbon Dioxide 22 BUN 17 Creatinine 1.11 Estimated GFR > 60.0 BUN/Creatinine Ratio 15.3 Glucose 120 H Calcium 9.4 Total Bilirubin 0.6 AST 26 ALT 17 Alkaline Phosphatase 100 Total Creatine Kinase 71 CK-MB (CK-2) TNP CK-MB (CK-2) Rel Index TNP Troponin I < 0.012 NT-Pro-B Natriuret Pep 87 Total Protein 7.3 Albumin 4.2 Globulin 3.1 Albumin/Globulin Ratio 1.4 Lipase 145 Procalcitonin 04/08/20 04/08/20 04/09/20 20:22 22:58 06:50 WBC RBC Hgb Hct MCV MCH MCHC RDW Plt Count Neut % (Auto) Lymph % (Auto) [place] % (Auto) Eos % (Auto) Baso % (Auto) Neut # (Auto) Lymph # (Auto) [place] # (Auto) Eos # (Auto) Baso # (Auto) D-Dimer Sodium Potassium Chloride Carbon Dioxide BUN Creatinine Estimated GFR BUN/Creatinine Ratio Glucose Calcium Total Bilirubin AST ALT Alkaline Phosphatase Total Creatine Kinase CK-MB (CK-2) CK-MB (CK-2) Rel Index Troponin I 0.013 0.016 NT-Pro-B Natriuret Pep Total Protein Albumin Globulin Albumin/Globulin Ratio Lipase Procalcitonin 0.05 Assessment & Plan Assessment & Plan narrative: Chest pain. Patient with moderate risk factors and negative workup so far. We discussed options elected for treadmill. Will set that up and follow-up after this. He has been asymptomatic EKG looked normal but will see what that shows. If negative can have discharge. Hypertension poor control. Will continue usual medicines and wait till after treadmill and then decide on further treatment at that time. History of asthma stable. No change in medication. BPH. Usual medication will follow. Severe allergy history seems to be doing well no change at this time. DVT prophylaxis SCDs no need for any other treatment. GI prophylaxis on PPI. Will continue. Disposition. I think patient has moderate risk but if positive will be transferred to [facility] for workup if negative will be discharged home.
== END 2020-04-09 14:35 | disposition home or self-care (01) ==
LOC: ED 23:42 → AC 23:44
PROVIDERS: Admitting Provider Family Medicine; Emergency Provider Emergency Medicine; PCP Family Medicine; Visit Provider Family Medicine
DX: R07.9 Chest pain, unspecified (principal); I10 Essential (primary) hypertension; J45.909 Unspecified asthma, uncomplicated
CPT/HCPCS: 36415; 71045; 80053; 82550; 83690; 83880; 84145; 84484; 85025; 85379; 93005; 93017; 96360; 96361; 99285; G0378

== ENCOUNTER → 2020-04-11 11:46 | Outpatient (CLI) | payer OTHER, SELFPAY ==
[2020-04-09 01:02] VITALS: BMI 27.8
[2020-04-11 23:35] LABS: COVID19 Sendout Not Detected (Not Detect)
== END ==
PROVIDERS: PCP Family Medicine; Visit Provider Registered Nurse
DX: Z01.812 Encounter for preprocedural laboratory examination (principal)
CPT/HCPCS: 87635

== ENCOUNTER → 2020-04-13 07:36 | Outpatient (CLI) | payer OTHER, SELFPAY ==
[2020-04-09 01:02] VITALS: BMI 27.8
--- NOTE | 2020-04-13 | DI.NM.S_ITS ---
PROCEDURE: NM ESTELA PERF SPECT REST & STR Rest and exercise myocardial perfusion SPECT with gated imaging and ejection fraction RADIOPHARMACEUTICAL: 8.7 mCi Tc-99m sestamibi IV at rest and 25.8 mCi Tc-99m sestamibi IV at peak exercise. A [id number] was performed. INDICATIONS: Chest pain, unspecified TECHNIQUE: Radiopharmaceutical was injected at peak stress test, and also at rest. SPECT images were obtained. SPECT myocardial perfusion images were displayed in short axis, horizontal long axis, and vertical long axis views. Gated images were reviewed using [employer] software. COMPARISON: None. CARDIAC STRESS: A standard Kaveh treadmill exercise tolerance test was performed by the patient under the supervision of an attending staff. The patient exercised for 3 minutes and 37 seconds; functional aerobic impairment (KRISTY) is not calculated given to the study was terminated early given the current, nonsustained white complex tachycardia. Hemodynamic data: There is normal blood pressure and heart rate response to exercise stress. Patient achieved under 150% of maximum predicted heart rate at peak exercise. Symptoms: Patient denied chest pain during exercise. However, during episodes of white complex tachycardia he felt fatigued. EKG: Baseline EKG shows a normal sinus rhythm with a narrow QRS and no evidence of a prior infarct ishmael heart rate of 82 beats per minute and isolated PACs. During the stage I and after 2 minutes into exercise, patient started to develop a regular, wide complex tachycardia. The initial episode only lasted 12 seconds. This is at rate of 150 beats per minute. The morphology is left bundle-branch block. During the stage II, there is another episode of white complex tachycardia which lasted 23 seconds and spontaneously terminated back to a narrow complex rsinus tachycardia at 124 beats per minute with no ST-T changes. FINDINGS: Raw data: There is good myocardial labeling by radiotracer. No significant motion artifacts. Npuz-bj-hpzny ratio is 0.32 (normal is less than 0.38 for sestamibi tracer, and less than 0.50 for thallium tracer). Left ventricle function: Gated images demonstrate normal left ventricle wall thickening. No segmental wall motion abnormality. No transient ischemic dilation; TID is 0.70 (normal less than 1.3). The left ventricle resting end-diastolic volume is 107 mL. Left ventricle stress ejection fraction is 75%; normal values are above 45%. Myocardial perfusion: There is a small, mild perfusion defect in apical inferolateral wall which is actually worse on stress and better undressed but also persistent prone imaging. No reversible ischemia. Otherwise there is normal distribution of activity in the left myocardium. No reversible perfusion defects. IMPRESSION: -Abnormal study. -Very small, mild fixed apical inferolateral defect which is worse at rest is more suspicious for artifact rather than true scar given normal contractility. However, the EKG portion of the study shows intermittent episodes of wide complex tachycardia. -TID, ejection fraction, LV volume and wall motion are all normal. -This is still a high risk study given wide complex tachycardia with exercise. This could be related to underlying coronary disease with balanced ischemia given unremarkable perfusion study. It can be also related to other underlying structural abnormalities. Cardiology consultation is recommended. Dictated by: Rad Almanza M.D. on 04/13/2020 at 13:20 Approved by: Rad Almanza M.D. on 04/13/2020 at 13:35
--- NOTE | 2020-04-13 12:02 | PM.TREADMILL ---
Cardiac Stress Test Report Referral & Results Date Patient Seen: 04/13/20 Time Patient Seen: 12:03 Requesting provider: Bruce Catalan Indication: Chest pain Rest ECG: Sinus rhythm Procedure Note: Standard Kaveh protocol,3:47, 4.5 METS; Reduced exercise capacity; Normal hemodynamic response to exercise; no anginal or chest pain symptoms. Patient developed 9 beat run of NSVT with a HR around 170 BPMassociated with weakness, vagal manuever unsuccessful. Patient developed multiple episodes of NSVT with longest lasting 14 beats with a HR > 200 BPM; each episode would spontaneous convert before medication could be administered. No ST changes noted. Dr. Almanza notified of the episodes of NSVT with recommendations to begin Aspirin 81 mg daily & Metoprolol tartrate 12.5 mg BID and to limit physical activity until nuclear stress test results have been processed. Impression: Equivocal exercise stress test with nuclear images pending. Please note: Actual ECG tracings can be found in the PACS system.
== END ==
PROVIDERS: PCP Family Medicine; Referring Provider Family Medicine; Visit Provider Family Medicine
DX: R94.39 Abnormal result of other cardiovascular function study (principal); R07.9 Chest pain, unspecified
CPT/HCPCS: 78452; 93017; A9502

== ENCOUNTER → 2020-06-25 13:40 | Outpatient (CLI) | payer OTHER, SELFPAY ==
[2020-04-09 01:02] VITALS: BMI 27.8
--- NOTE | 2020-06-25 | DI.ECHO.S_ITS ---
[facility] +---------+ : : [address] : [address] : : : : [id number] : : : : Phone: [phone]+ Echocardiogram Report + + :Name: KAVIN OWENS Study Date: 06/25/2020 Height: 73 in : :[facility] Weight: 211 lb : : Gender: Male BSA: 2.2 m2 : :: 1945 Age: 74 yrs BP: 136/75 mmHg: :Reason For Study: TACHYCARDIA : :Ordering Physician: Dr. Chan : :[place] Performed By: Tasneem York : :Referring: CHERI WHITMORE : + + Interpretation Summary Left ventricular ejection fraction is estimated to be 55 +/- 5%. There is mild to moderate aortic regurgitation. There is mild tricuspid regurgitation. The right ventricular systolic pressure is estimated to be at least 26 mmHg based on an estimated right atrial pressure of 3 mm Hg. Procedure: A two-dimensional transthoracic echocardiogram with color flow and Doppler was performed. The study quality was technically adequate. The patient had an echocardiogram, but there is no comparison study available. Left Ventricle: The left ventricle is normal in size and wall thickness. Proximal septal thickening is noted. Left ventricular ejection fraction is estimated to be 55 +/- 5%. There are no obvious focal wall motion abnormalities noted but poor endocardial definition reduces the sensitivity for the detection of such. Diastolic parameters suggest a relaxation abnormality of the left ventricle, consistent with probable normal filling pressures. Right Ventricle: The right ventricle is normal in size and function. Atria: The left atrial size is normal. Right atrial size is normal. There is no Doppler evidence for an interatrial shunt. Mitral Valve: The mitral valve is normal in structure and function. There is mild mitral annular calcification. There is trace mitral regurgitation. Aortic Valve: The aortic valve is trileaflet. The aortic valve opens well. There is no aortic valve stenosis. There is mild to moderate aortic regurgitation. Tricuspid Valve: The tricuspid valve is normal in structure and function. There is mild tricuspid regurgitation. The right ventricular systolic pressure is estimated to be at least 26 mmHg based on an estimated right atrial pressure of 3 mm Hg. Pulmonic Valve: The pulmonic valve is not well seen, but is grossly normal. There is no pulmonic valvular regurgitation. Great Vessels: The aortic root is normal size. The dimensions of the ascending aorta are normal. The IVC is of normal diameter and collapses greater than 50% with a sniff. This suggests a low right atrial pressure of 3 mm Hg. Pericardium/ Pleura There is no pericardial effusion. There is no pleural effusion. MMode/2D Measurements & Calculations LVIDd: 5.4 cm LVOT diam: 2.3 cm LVIDs: 3.5 cm Ao root diam: 3.3 cm FS: 35.7 % asc Aorta Diam: 3.1 cm EPSS: 0.95 cm Ao Arch Diam (Prox Trans): 2.8 cm IVSd: 1.1 cm LVPWd: 0.90 cm LV young. diameter/BSA (cm/m^2): 2.4 LV sys. diameter/BSA (cm/m^2): 1.6 LA A2 area: 20.7 cm2 RA long axis: 5.5 cm LA A4 area: 24.7 cm2 RA area: 17.9 cm2 LA length (vol): 6.2 cm RA vol: 48.9 ml LA vol: 69.7 ml RA : 22.2 ml/m2 LA vol index: 31.7 ml/m2 IVC diam: 1.7 cm RVD1 (basal): 3.5 cm TAPSE: 1.9 cm Doppler Measurements & Calculations Ao V2 max: 126.7 cm/sec LVOT Max Roberth: 103.1 cm/sec Ao V2 mean: 85.8 cm/sec LV V1 max P.2 mmHg Ao max P.4 mmHg LV V1 VTI: 21.3 cm Ao mean P.4 mmHg DINESH(I,D): 3.3 cm2 Ao V2 VTI: 27.8 cm DINESH(V,D): 3.5 cm2 sev ratio: 0.77 DINESH indexed to BSA (cm^2/m^2): 1.5 AI P1/2t: 1064 msec AI dec slope: 105.5 cm/sec2 MV E max roberth: 68.0 cm/sec TR max roberth: 241.2 cm/sec MV A max roberth: 78.6 cm/sec TR max P.3 mmHg MV E/A: 0.87 PA V2 max: 82.7 cm/sec Med Peak E' Roberth: 5.7 cm/sec PA V2 mean: 54.4 cm/sec E/E' med: 12.0 PA mean P.4 mmHg Lat Peak E' Roberth: 8.8 cm/sec PA pr(Accel): 22.5 mmHg E/E' lat: 7.8 E/e' average: 9.9 MV dec time: 0.21 sec SV(LVOT): 91.0 ml Reading Physician:03:22 PM
== END ==
PROVIDERS: PCP Family Medicine; Referring Provider Internal Medicine Cardiovascular Disease; Visit Provider Internal Medicine Cardiovascular Disease
DX: I08.2 Rheumatic disorders of both aortic and tricuspid valves (principal); I47.2 Ventricular tachycardia
CPT/HCPCS: 93306

== ENCOUNTER → 2022-09-24 14:54 | Outpatient (CLI) | payer OTHER, SELFPAY ==
[2020-04-09 01:02] VITALS: BMI 27.8
--- NOTE | 2022-09-24 | DI.RAD.S_ITS ---
PROCEDURE: XR KNEE RT 3V INDICATIONS: RIGHT KNEE PAIN TECHNIQUE: 3 views of the knee were acquired. COMPARISON: None. FINDINGS: Bones: Tricompartmental degenerative changes with tricompartmental osteophytes moderate joint space. No fractures or dislocations. No suspicious bony lesions. Soft tissues: No joint effusion. No suspicious soft tissue calcifications. IMPRESSION: Tricompartmental degenerative changes consistent with osteoarthritis. Dictated by: Clayton Wan M.D. on 09/25/2022 at 9:55 Approved by: Clayton Wan M.D. on 09/25/2022 at 9:56
== END ==
PROVIDERS: PCP Family Medicine; Referring Provider Family Medicine; Visit Provider Family Medicine
DX: M25.561 Pain in right knee (principal)
CPT/HCPCS: 73562

== ENCOUNTER → 2023-09-23 11:23 | Outpatient (ROUT) | payer OTHER, SELFPAY ==
[2020-04-09 01:02] VITALS: BMI 27.8
== END ==
PROVIDERS: PCP Family Medicine; Visit Provider Dermatology
DX: L02.222 Furuncle of back [any part, except buttock and flank] (principal)
CPT/HCPCS: 87070; 87077; 87205